=== PATIENT | male | born 1965 | race Caucasian/White ===

== ENCOUNTER 2017-12-25 21:06 | Emergency (ER) | payer MEDICAID ==
[2017-12-25] MEDS: Take Home: Amoxicillin 875 MG Tab, 2 Tab Pack PO ONE (21:28)
--- NOTE | 2017-12-25 21:36 | EDM.PDOC ---
ED HPI GENERAL MEDICAL PROBLEM - General Chief Complaint: General Stated Complaint: facial swelling Time Seen by Provider: 12/25/17 21:20 Source of Information: Reports: Patient History Limitations: Reports: No Limitations - History of Present Illness INITIAL COMMENTS - FREE TEXT/NARRATIVE: L sided facial swelling started today. Has a history of severe dental caries and is missing most of the teeth on that side. No fever or chills. Denies any chest pain or shortness of breath. No weakness. Onset: Today Location: Reports: Face - Related Data Allergies Allergy/AdvReac Type Severity Reaction Status Date / Time codeine Allergy Other Verified 12/25/17 21:12 Home Meds: Home Meds . [No Known Home Meds] 12/25/17 [History] Past Medical History Musculoskeletal History: Reports: Other (See Below) Other Musculoskeletal History: broken neck, skull fracture, broken fingers, right shoulder injury Social & Family History - Tobacco Use Smoking Status *Q: Current Every Day Smoker Years of Tobacco use: 40 Packs/Tins Daily: 3 ED ROS GENERAL - Review of Systems Review Of Systems: See Below Constitutional: Reports: No Symptoms HEENT: Reports: Other (L sided facial swelling) Respiratory: Reports: No Symptoms Cardiovascular: Reports: No Symptoms Endocrine: Reports: No Symptoms GI/Abdominal: Reports: No Symptoms : Reports: No Symptoms Musculoskeletal: Reports: No Symptoms Skin: Reports: Other Neurological: Reports: No Symptoms Psychiatric: Reports: No Symptoms ED EXAM, GENERAL - Physical Exam Exam: See Below Exam Limited By: No Limitations General Appearance: Alert, WD/WN, No Apparent Distress Neck: Normal Inspection, Supple, Non-Tender, Full Range of Motion Respiratory/Chest: No Respiratory Distress, Lungs Clear, Normal Breath Sounds, No Accessory Muscle Use, Chest Non-Tender Cardiovascular: Normal Peripheral Pulses, Regular Rate, Rhythm, No Edema, No Gallop, No JVD, No Murmur, No Rub GI/Abdominal: Normal Bowel Sounds, Soft, Non-Tender, No Organomegaly, No Distention, No Abnormal Bruit, No Mass Neurological: Alert, Oriented, CN II-XII Intact, Normal Cognition, Normal Gait, Normal Reflexes, No Motor/Sensory Deficits Course - Vital Signs Last Recorded V/S: Last Vital Signs Temp 38.0 C 12/25/17 21:13 Pulse 104 H 12/25/17 21:13 Resp 18 12/25/17 21:13 BP 162/117 H 12/25/17 21:13 Pulse Ox 100 12/25/17 21:13 - Orders/Labs/Meds Meds: Medications Discontinued Medications Generic Name Dose Route Start Last Admin Trade Name Colin PRN Reason Stop Dose Admin Amoxicillin 2 packet 12/25/17 21:24 12/25/17 21:28 Take Home: Amoxicillin 875 Mg Tab, 2 Tab Pack PO 12/25/17 21:25 2 packet ONETIME ONE Administration Departure - Departure Time of Disposition: 21:40 Disposition: Home, Self-Care 01 Clinical Impression: Dental infection - Discharge Information Instructions: Cellulitis, Adult Forms: ED Department Discharge Additional Instructions: amoxicillin 875mg twice daily for 10 days heat packs to the area to help with inflammation tylenol and ibuprofen for discomfort
== END 2017-12-25 21:42 | disposition home or self-care (01) ==
LOC: VM.ED 21:06
DX: K04.7 Periapical abscess without sinus (principal); F17.210 Nicotine dependence, cigarettes, uncomplicated; Z88.5 Allergy status to narcotic agent
CPT/HCPCS: 99283; 99283-GF; A9270-GY